=== PATIENT | female | born 1975 | race Caucasian/White ===

== ENCOUNTER → 2020-08-14 | Outpatient (CLI) | payer OTHER ==
--- NOTE | 2020-08-16 03:01 | ECWPNPC ---
PATIENT NAME: EVARISTO MOREL : 1975 GENDER: FEMALE VISIT DATE: 08/14/2020 DISCHARGE DATE: 08/14/20 1355 VISIT LOCKED DATE TIME: PHYSICIAN: KARLA BATES RESOURCE: KARLA BATES REASON FOR APPOINTMENT 1. BOTOX FOR MIGRAINES HISTORY OF PRESENT ILLNESS GENERAL: HPI 45-YEAR-OLD FEMALE IN FOR INITIAL PAIN CONSULT REGARDING BOTOX INJECTIONS FOR HER MIGRAINES. PATIENT ADMITS TO A HISTORY OF MIGRAINES FOR SEVERAL YEARS FURTHER STATING THAT SHE GETS GREATER THAN 15 MIGRAINES A MONTH. PATIENT IS CURRENTLY ON PROPRANOLOL A PROPHYLACTIC MIGRAINE MEDICINE SHE IS ALSO TAKING RIZATRIPTAN AND IMITREX NEEDED. . -. FALL RISK SCREENING: SCREENING : NO FALLS REPORTED IN THE LAST YEAR. PAIN SCREENING: PATIENT HAS A COMPLAINT OF ACUTE OR CHRONIC PAIN :YES LOCATION OF PAIN:HEAD, NECK INTENSITY OF PAIN (SCALE OF 1 TO 10):3 WHAT DOES YOUR PAIN FEEL LIKE:THROBBING DURATION:STEADY PAIN IS DECREASED BY:USE OF PAIN MEDICATIONS PLAN/GOALS/TREATMENT/INTERVENTION/FOLLOW UP:SEE PLAN NURSING NOTE: -. PAIN CENTER INTAKE QUESTIONS: DO YOU HAVE A HISTORY OF MRSA? :NO DO YOU TAKE A BLOOD THINNERS? :NO DO YOU HAVE ANY BLEEDING DISORDERS? :NO ANY NEW NUMBNESS OR WEAKNESS IN YOUR LEGS OR ARMS? :NO ANY PACEMAKER,DEFIBRILLATOR, OR DORSAL COLUMN STIMULATOR? :NO DO YOU HAVE ANY RASHES OR OPEN SORES? :NO ARE YOU ALLERGIC TO IV DYE? :NO ARE YOU DIABETIC? :NO ANY NEW PROBLEMS WITH YOUR MEDICATIONS? :NO HAVE YOU RECEIVED A VACCINE IN THE PAST 30 DAYS? :NO DO YOU PLAN TO RECEIVE A VACCINE IN THE NEXT 21 DAYS? :NO DO YOU NEED ANY PRESCRIPTION? :NO DO YOU TAKE ANY IMMUNOSUPPRESSIVE MEDICATIONS? :NO DO YOU HAVE ANY KIDNEY OR LIVER DISEASE? :NO IS THERE A CHANCE YOU COULD BE ? :NO ARE YOU BREAST FEEDING? :NO CURRENT MEDICATIONS TAKING VITAMIN D (CHOLECALCIFEROL) 25 MCG (1000 UT) CAPSULE 1 CAPSULE ORALLY ONCE A DAY TAKING PROPRANOLOL HCL 40 MG TABLET 1 TABLET ORALLY TWICE A DAY TAKING RIZATRIPTAN BENZOATE 10 MG TABLET 1 TABLET ORALLY ONCE A DAY TAKING MEDROL (ALLY) TAKING IMITREX 6 MG/0.5ML SOLUTION INJECTION SUBCUTANEOUS TWICE A DAY NEEDED TAKING MAGNESIUM 30 MG TABLET 1 TABLET WITH A MEAL ORALLY ONCE A DAY NOT-TAKING AJOVY 225 MG/1.5ML SOLUTION PREFILLED SYRINGE 1.5 ML SUBCUTANEOUS , NOTES: MONTHLY PAST MEDICAL HISTORY MIGRAINE HEADACHES OBESITY INTERSTITIAL CYSTITIS HYPERLIPIDEMIA ALLERGIES PENICILLIN V POTASSIUM: RASH - ALLERGY MORPHINE SULFATE: CHEST PRESSURE/SOB - ALLERGY AJOVY: HEAT SPOT AND SKIN CRAWLING BENADRYL: ITCHING - SIDE EFFECTS SURGICAL HISTORY ESSURE IMPLANT (ALTERNATIVE TO TUBAL LIGATION) 08/2011 TVT 09/2011 PARTIAL HYSTERECTOMY 2014 RIGHT BREAST BIOPSY 2014 BLADDER SUSPENSION 2012 BOTOX INJECTION INTO BLADDER 04/2018 CHOLECYSTECTOMY (DR. KEBEDE) 06/15/2018 SCAR TISSURE REMOVED FROM LEFT OVARY 04/2019 FAMILY HISTORY FATHER: ALIVE, DIAGNOSED WITH HYPERTENSION, DIABETES MOTHER: ALIVE, HYPERTENSION PATERNAL GRAND MOTHER: 2 BROTHER(S) , 2 SISTER(S) - HEALTHY. 1 SON(S) , 2 DAUGHTER(S) - HEALTHY. PATERNAL GRANDFATHER: SEIZURES. SOCIAL HISTORY GENERAL: TOBACCO USE ARE YOU A:NONSMOKER ALCOHOL USE: YES, RARELY. RECREATIONAL DRUG USE DRUG USE?NO BUDDHISM [id number] SPIRITISM NO LUTHERAN BELIEFS THAT WOULD IMPACT HEALTH CARE. LEARNING BARRIERS / SPECIAL NEEDS BARRIERS TO LEARNING?NO HEARING IMPAIRED?NO VISION IMPAIRED?YES :CORRECTIVE LENSES COGNITIVELY IMPAIRED?NO READINESS TO LEARN?YES LEARNING PREFERENCES?NO LEARNING CAPABILITIES PRESENT?YES EMOTIONAL BARRIERS?NO SPECIAL DEVICES?NO COLOR RECEIVER NEEDED?NO HOSPITALIZATION/MAJOR DIAGNOSTIC PROCEDURE CHILDBIRTH SURGICAL RELATED REVIEW OF SYSTEMS CONSTITUTIONAL: ANY RECENT FEVER NO . CHILLS NO . WEIGHT CHANGE OF UNKNOWN REASONS NO . MUSCULOSKELETAL: ANY UNUSUAL JOINT PAIN OR SWELLING NOT MENTIONED NO . SYSTEMIC LUPUS NO . ANY NEUROMUSCULAR DISORDER NOT MENTIONED NO . LYME DISEASE NO . GASTROENTEROLOGY: ANY NEW CHANGE IN BOWEL CONTROL? NO . HISTORY OF LIVER DISORDER NOT MENTIONED NO . NEW UNEXPLAINABLE CHANGES IN BOWEL CONTROL NO . HISTORY OF UNUSUAL ABDOMINAL PAIN OR CRAMPING NOT MENTIONED NO . NO CONSTIPATION, NO . GENITOURINARY: ANY NEW CHANGE IN BLADDER CONTROL? NO, NO . ANY RENAL/KIDNEY CONDITON NOT MENTIONED NO . NEUROLOGY: HISTORY OF TBI NOT MENTIONED NO . OTHER NEW NUMBNESS OR PAIN PATTERNS NOT MENTIONED NO . NEW ONSET DIZZINESS OR NEUROLOGICAL CHANGES NOT MENTIONED NO, NO . NEW NUMBNESS OR PAIN PATTERNS NOT MENTIONED AND PERTINENT TO TODAY'S VISIT NO . HISTORY OF SEVERE HEADACHES NOT MENTIONED NO . HISTORY OF STROKE OR NEUROLOGICAL DISORDER NOT MENTIONED NO . CARDIOLOGY: NEW CHEST PRESSURE NO . HEART SURGERY NO . CONGESTIVE HEART FAILURE/FLUID OVERLOAD NOT MENTIONED NO . PATIENT DENIES NO . HISTORY OF CHEST PAIN,IRREGULAR HEART BEAT NOT MENTIONED NO . RESPIRATORY: SHORTNESS OF BREATH ON EXERTION, WHEEZES, UNUSUAL COUGH NOT MENTIONED NO . UNEXPLAINABLE COUGH NO . NEW SHORTNESS OF BREATH NO . ENDOCRINOLOGY: ADRENAL GLAND OR THYROID DISORDERS NOT MENTIONED NO . UNUSUAL URINATION, DIZZINESS OR LETHARGY NOT MENTIONED NO . VITAL SIGNS WT 207.0 LBS, HT 59 IN, BMI 41.80 INDEX, BP 137/63 MM HG, HR 66 /MIN, RR 18 /MIN, TEMP 98.7 F, OXYGEN SAT % 100%, NA INITIALS AW 1316. EXAMINATION GENERAL EXAMINATION: GENERALNO ACUTE DISTRESS, WELL NOURISHED AND HYDRATED. PSYCHAPPROPRIATE MOOD AND AFFECT . LUNGS:CLEAR TO AUSCULTATION BILATERALLY, NO WHEEZES, RHONCHI, RALES. HEART:NO MURMURS, REGULAR RATE AND RHYTHM. ASSESSMENTS MIGRAINE WITHOUT AURA AND WITHOUT STATUS MIGRAINOSUS, NOT INTRACTABLE - G43.009 (PRIMARY) TREATMENT MIGRAINE WITHOUT AURA AND WITHOUT STATUS MIGRAINOSUS, NOT INTRACTABLE NOTES: 45-YEAR-OLD FEMALE IN FOR INITIAL PAIN CONSULT. GIVEN PRESENTING SYMPTOMS RECOMMEND BOTOX INJECTIONS TO THE HEAD NECK AND SHOULDERS WITH POST PROCEDURAL FOLLOW-UP. PATIENT HAS EXPRESSED UNDERSTANDING OF AND WAS IN AGREEMENT WITH TREATMENT PLAN. GIVEN TIME TO ASK QUESTIONS AND EXPRESS CONCERNS. OTHERS NOTES: 08/13/20 1820 PAT DELMA SEVILLA PRE ASSEMBLY WIRER . PROCEDURE CODES FA211 ESTABILISHED PATIENT [facility] CHARGE DISPOSITION & COMMUNICATION FOLLOW UP POSTPROCEDURE (REASON: BOTOX INJECTIONS TO THE HEAD NECK AND SHOULDERS) ELECTRONICALLY SIGNED BY THI ADAMS ON 08/15/2020 AT 08:38 AM EDT DISCLAIMER : THIS IS A VISIT SUMMARY EXTRACTED FROM THE [employer] CHART. IT IS NOT A COPY OF THE [employer] PROGRESS NOTE. FLORES
== END ==
LOC: M PAIN 13:00
PROVIDERS: ATTEND Family Medicine
DX: G43.009 Migraine without aura, not intractable, without status migrainosus (principal); Z88.0 Allergy status to penicillin; Z88.5 Allergy status to narcotic agent; Z88.8 Allergy status to other drugs, medicaments and biological substances; E66.01 Morbid (severe) obesity due to excess calories; Z68.41 Body mass index [BMI] 40.0-44.9, adult; Z79.899 Other long term (current) drug therapy

== ENCOUNTER → 2020-09-19 | Outpatient (CLI) | payer OTHER ==
[~2020-09-19] MED LIST: BOTOX THERAPEUTIC 100 UNIT VIAL (J0585 PER 1 UNIT) IM ONE; NORCO, ANEXSIA 5/325MG TABLET (HYDROcodone/ACETAMINOPHEN) As Ordered ONE; ONDANSETRON 4 MG ORAL DISINTEGRATING TAB As Ordered ONE; diazePAM 5MG TABLET As Ordered ONE; diphenhydrAMINE 25MG CAP As Ordered ONE
--- NOTE | 2020-09-22 04:11 | ECWPNPC ---
PATIENT NAME: EVARISTO MOREL : 1975 GENDER: FEMALE VISIT DATE: 09/19/2020 DISCHARGE DATE: 09/19/20 1252 VISIT LOCKED DATE TIME: PHYSICIAN: BAN TIM MD RESOURCE: BAN TIM MD REASON FOR APPOINTMENT 1. BOTOX INJECTIONS TO THE HEAD NECK AND SHOULDERS HISTORY OF PRESENT ILLNESS GENERAL: -. PAIN SCREENING: PATIENT HAS A COMPLAINT OF ACUTE OR CHRONIC PAIN :YES LOCATION OF PAIN:FACE, HEAD INTENSITY OF PAIN (SCALE OF 1 TO 10):3 AVERAGE 7-8 WHAT DOES YOUR PAIN FEEL LIKE:SHARP, STABBING, THROBBING DURATION:CONSTANT, STEADY, AWAKENS FROM SLEEP PAIN IS INCREASED BY:ACTIVITIES, OTHERS BRIGHT LIGHTS, LOUD NOISES, VARIOUS TRIGGERS PAIN IS DECREASED BY:USE OF PAIN MEDICATIONS, OTHERS DECREASING STIMULATION PLAN/GOALS/TREATMENT/INTERVENTION/FOLLOW UP:SEE PLAN FALL RISK SCREENING: SCREENING : NO FALLS REPORTED IN THE LAST YEAR. NURSING NOTE: 09/17/[address] TIM, IF PATIENT IS ASYMPTOMATIC FROM UTI, PATIENT MAY HAVE BOTOX IF NOT PROCEDURE WILL HAVE TO BE PUSHED. Jeanie SEVILLA RESEARCH AND DEVELOPMENT DIRECTOR. 09/17/20 1215 PATIENT REPORTS SYMPTOMS ARE RESOLVING. PAIN CENTER INTAKE QUESTIONS: DO YOU HAVE A HISTORY OF MRSA? :NO DO YOU TAKE A BLOOD THINNERS? :NO DO YOU HAVE ANY BLEEDING DISORDERS? :NO ANY NEW NUMBNESS OR WEAKNESS IN YOUR LEGS OR ARMS? :YES SAW CHIROPRACTOR LAST THURSDAY, EXPERIENCING INTERMITTENT NUMBNESS/TINGLING IN LEFT/RIGHT HAND, IMPROVED SINCE SEEING PROVIDER. ANY PACEMAKER,DEFIBRILLATOR, OR DORSAL COLUMN STIMULATOR? :NO DO YOU HAVE ANY RASHES OR OPEN SORES? :NO ARE YOU ALLERGIC TO IV DYE? :NO ARE YOU DIABETIC? :NO ANY NEW PROBLEMS WITH YOUR MEDICATIONS? :NO HAVE YOU RECEIVED A VACCINE IN THE PAST 30 DAYS? :NO DO YOU PLAN TO RECEIVE A VACCINE IN THE NEXT 21 DAYS? :NO DO YOU TAKE ANY IMMUNOSUPPRESSIVE MEDICATIONS? :NO ANY HISTORY OF SEIZURES? :NO ANY HISTORY OF CARDIAC ISSUES OR EVENTS? :NO DO YOU HAVE ANY KIDNEY OR LIVER DISEASE? :NO DO YOU HAVE SLEEP APNEA? :NO ANY RECENT HEAD INJURY? :NO DO YOU HAVE ANY NEW INFECTIONS? :YES RECENT UTI, SYMPYOMS RESOLVING, PER DR. M, OKAY TO PROCEED, ABX LAST DOSE 09/19/20. IS THERE A CHANCE YOU COULD BE ? :NO ARE YOU BREAST FEEDING? :NO WHEN DID YOU LAST EAT? : 09/18 1929 WHEN DID YOU LAST DRINK? : 09/20 839 WHAT DID YOU LAST DRINK? : WATER NAME OF PERSON DRIVING YOU HOME? : HEIDI () DO YOU HAVE ANY OTHER QUESTIONS OR CONCERNS? : NO CURRENT MEDICATIONS TAKING MAGNESIUM 30 MG TABLET 1 TABLET WITH A MEAL ORALLY ONCE A DAY TAKING VITAMIN D (CHOLECALCIFEROL) 25 MCG (1000 UT) CAPSULE 1 CAPSULE ORALLY ONCE A DAY TAKING PROPRANOLOL HCL 40 MG TABLET 1 TABLET ORALLY TWICE A DAY, NOTES: 09/19 714 TAKING RIZATRIPTAN BENZOATE 10 MG TABLET 1 TABLET ORALLY ONCE A DAY, NOTES: 09/11 TAKING IMITREX 6 MG/0.5ML SOLUTION INJECTION SUBCUTANEOUS TWICE A DAY NEEDED TAKING BOTOX 100 UNIT SOLUTION RECONSTITUTED FOR IM INJECTION AT THE HEAD, NECK AND SHOULDER MUSCLES ICD G43.709 BOTOX ON 09/19/20 AT 10:40 TAKING MAGNESIUM 400 MG CAPSULE DIRECTED ORALLY TAKING CIPRO 500 MG TABLET 1 TABLET ORALLY EVERY 12 HRS, NOTES: COMPLETED 09/19 714 NOT-TAKING MEDROL (ALLY) NOT-TAKING AJOVY 225 MG/1.5ML SOLUTION PREFILLED SYRINGE 1.5 ML SUBCUTANEOUS , NOTES: MONTHLY MEDICATION LIST REVIEWED AND RECONCILED WITH THE PATIENT PAST MEDICAL HISTORY MIGRAINE HEADACHES OBESITY INTERSTITIAL CYSTITIS HYPERLIPIDEMIA ALLERGIES PENICILLIN V POTASSIUM: RASH - ALLERGY MORPHINE SULFATE: CHEST PRESSURE/SOB - ALLERGY AJOVY: HEAT SPOT AND SKIN CRAWLING - ALLERGY BENADRYL: ITCHING - SIDE EFFECTS SOCIAL HISTORY GENERAL: TOBACCO USE ARE YOU A:NONSMOKER LATEX QUESTIONNAIRE LATEX ALLERGY : HAVE YOU EVER DEVELOPED ANY TYPE OF REACTION AFTER HANDLING LATEX PRODUCTS SUCH RUBBER GLOVES, CONDOMS, DIAPHRAGMS, BALLOONS, SOCKS, OR UNDERWEAR?NO LATEX ALLERGY : HAVE YOU EVER DEVELOPED ANY TYPE OF REACTION DURING OR AFTER DENTAL APPOINTMENT, VAGINAL/RECTAL EXAMINATION, SURGICAL PROCEDURE, OR ANY OTHER EXPOSURE?NO LATEX RISK : HAVE YOU EVER HAD ANY DIFFICULTY BREATHING OR HIVES AFTER EATING OR HANDLING ANY FRUITS, OR VEGETABLES; SUCH KIWI, BANANAS, STONE FRUITS, OR CHESTNUTSYES - PLEASE INDICATE : BANANAS TASTE BUDS SWELL LATEX RISK : DO YOU HAVE A PREVIOUS PERSONAL HISTORY OF MORE THAN NINE SURGERIES, SPINA BIFIDA, OR REPEATED CATHERIZATIONS? YES - PLEASE INDICATE : > 9 SURGERIES LATEX RISK : ARE YOU FREQUENTLY EXPOSED TO LATEX PRODUCTS IN YOUR OCCUPATION?NO DATE ASKED : 09/18/2020 ALCOHOL USE: YES, RARELY. RECREATIONAL DRUG USE DRUG USE?NO EPISCOPAL [id number] CHRISTIANITY NO ANABAPTIST BELIEFS THAT WOULD IMPACT HEALTH CARE. 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 MARITAL STATUS: . - HAS THE PATIENT BEEN EDUCATED REGARDING HIS/HER PLAN OF CARE?YES HAS THE PATIENT BEEN EDUCATED REGARDING PAIN, THE RISK FOR PAIN, THE IMPORTANCE OF EFFECTIVE PAIN MANAGEMENT, AND THE PAIN ASSESSMENT PROCESS?YES ADVANCE DIRECTIVE ADVANCE DIRECTIVE DISCUSSED WITH PATIENT:YES PT DOES NOT HAVE ANY ADVANCED DIRECTIVES AND DECLINES INFORMATION ON HCP AT THIS TIME VITAL SIGNS WT 206.0 LBS, HT 59 IN, BMI 41.60 INDEX, BP 116/74 MM HG, HR 55 /MIN, RR 18 /MIN, TEMP 97.6 F, OXYGEN SAT % 97%, SAFE IN ENV? (Y/N) Y, NA INITIALS AW 1113, REVIEWED BY: Naa KELSEY RN. EXAMINATION GENERAL: THE PATIENT IS ALERT, ORIENTED TIMES THREE AND COOPERATIVE. LUNGS ARE CLEAR TO AUSCULTATION. HEART SHOWS REGULAR RHYTHM, NO MURMURS AND NO GALLOPS. ASSESSMENTS CHRONIC MIGRAINE - G43.709 (PRIMARY) TREATMENT CHRONIC MIGRAINE MEDICATION: PAIN VALIUM TAB 10MG ORALLY (DIAZEPAM)SISI NEVAREZ 09/19/2020 11:29:30 AM > VERIFIED CURLY KELSEY 09/19/2020 11:38:54 AM > ADMINISTERED AT 1134 COMPLETION OF PROCEDURAL VISIT WHEN MEETS CRITERIADECURLY ELLIOTT 09/19/2020 12:56:46 PM > CRITERIA MET 1252 MED: PAIN ZOFRAN ODT TAB 4MG DISSOLVE ON TONGUE ONDANSETRONMAURESISI Lindquist 09/19/2020 11:29:46 AM > VERIFIED CURLY KELSEY 09/19/2020 11:38:26 AM > ADMINIATERED MED: PAIN BENADRYL TAB 25MG ORALLY DIPHENHYDRAMINEMAURESISI Lindquist 09/19/2020 11:30:05 AM > VERIFIED ELIGIO PIERCE 09/19/2020 11:34:18 AM > ORDER CANCELED. PATIENT ALLERGIC MED: PAIN NORCO TABLET 5MG/325MG ORALLY HYDROCODONE/ACETAMINOPHENMAURERGUADALUPESISI 09/19/2020 11:30:18 AM > VERIFIED CURLY KELSEY 09/19/2020 11:39:16 AM > ADMINISTERED AT 1134 PROCEDURES PAIN NURSING RECORD PROCEDURE IN ROOM 1055, PHYSICIAN IN ROOM 1212, START 1217, FINISH 1230, PHYSICIAN OUT OF ROOM 1230, OUT OF ROOM 1252, ECG N/A, PATIENT SHIELDED N/A, SAFETY STRAP N/A, PREP ALCOHOL DR. TIM, DRESSING N/A LOC: LOWCURLY 09/19/2020 11:22:58 AM > 1. ALERT, ORIENTED RESP: LOW,CURLY 09/19/2020 11:23:01 AM > 1. REGULAR, NO DYSPNEA COLOR: LOWCURLY 09/19/2020 11:23:04 AM > 1. PINK SKIN: LOW,CURLY 09/19/2020 11:23:07 AM > 1. WARM, DRY POSITION: LOWCURLY 09/19/2020 11:23:10 AM > 5. SITTING COMPLETION OF PROCEDURE APPOINTMENT: POST PAIN 4 :"STINGING" LEFT SIDE OF HEAD, DRESSING SITE NO DRESSING, IV N/A, GAIT STEADY, TEACHING COMPLETED, PATIENT ACKNOWLEDGES UNDERSTANDING YES, PROCEDURE APPOINTMENT COMPLETED AT 1252 BY: Naa KELSEY RN PN BOTOX INJECTIONS FIRST INJECTION PRE PROCEDURE DIAGNOSIS CHRONIC MIGRAINE HEADACHES POST PROCEDURE DIAGNOSIS CHRONIC MIGRAINE HEADACHES PROCEDURE BOTOX INJECTION AT THE HEAD, NECK AND SHOULDERS SURGEON DR. BAN TIM FUR DRY CLEANER NONE ANESTHESIA NONE PRE PROCEDURE NOTE THE PATIENT HAS HISTORY OF CHRONIC MIGRAINE HEADACHES. I EVALUATED THE PATIENT AND REVIEWED THE CHART. I WENT OVER THE RISKS, ALTERNATIVES, AND BENEFITS ASSOCIATED WITH THIS PROCEDURE. THE PATIENT WOULD LIKE TO PROCEED AND GAVE CONSENT TO PERFORM THE PROCEDURE. THE PATIENT DENIES UNEXPLAINABLE WEIGHT LOSS, FEVER, CHILLS, OR NEW CHANGES IN URINARY OR BOWEL CONTROL. THE PATIENT IS HAVING HEADACHES EVERY DAY OF THE MONTH. THE PATIENT HAS USED THE MEDICATIONS LISTED IN THE CHART TO TREAT THE HEADACHES FOR MANY MONTHS BUT THE HEADACHES PERSIST DESCRIBED ABOVE. THE PATIENT IS COVID-19 NEGATIVE DESCRIPTION OF PROCEDURE THE PATIENT WAS BROUGHT TO THE PROCEDURE ROOM AND PLACED IN THE SUPINE POSITION. A TIMEOUT WAS PERFORMED WHERE THE CONSENTED SITE WAS VERIFIED WITH EVERYONE IN THE ROOM. FOR THE PROCEDURE, I USED A SOLUTION OF 5 UNITS OF BOTOX PER EACH 0.1 ML OF THE SOLUTION. I USED A 30-GAUGE NEEDLE TO INJECT THE SOLUTION AT THE SELECTED LOCATIONS. I INJECTED FIRST THE RIGHT AND LEFT AFRICAN STUDIES PROFESSOR MUSCLES. THE LANDMARK FOR BOTH INJECTIONS WAS APPROXIMATELY 1 CM ABOVE THE SUPERIOR MEDIAL EDGE OF THE EYEBROW. AFTER THESE TWO INJECTIONS, I INJECTED THE PROCERUS MUSCLE AT THE MIDLINE POINT BETWEEN THESE FIRST TWO INJECTIONS. I INJECTED AT THESE 3 LOCATIONS, 2.5 UNITS OF BOTOX. THEN I PROCEEDED TO INJECT THE RIGHT AND LEFT FRONTALIS MUSCLE. TWO INJECTIONS WERE DONE IN EACH SIDE. THE FIRST INJECTION WAS DONE APPROXIMATELY 2 CM ABOVE THE FIRST INJECTION OF THE AFRICAN STUDIES PROFESSOR. THE SECOND INJECTION WAS DONE APPROXIMATELY 1.5 CM LATERAL TO THIS FIST INJECTION OF THE FRONTALIS OF EACH SIDE. AFTER THE INJECTIONS OVER THE FOREHEAD WERE DONE, THE PATIENT'S HEAD WAS TURNED TO THE LEFT SIDE AND WE STARTED TO WORK WITH THE RIGHT TEMPORALIS MUSCLE. FIRST INJECTION WAS DONE IN A VERTICAL LINE OF THE TRAGUS APPROXIMATELY 3 CM ABOVE THE TRAGUS. THE SECOND INJECTION WAS DONE APPROXIMATELY 2 CM ABOVE THE FIRST INJECTION. THE THIRD INJECTION WAS DONE APPROXIMATELY 1 CM FORWARD FROM THIS VERTICAL LINE CREATED AT THE LEVEL OF THE TRAGUS, SKILLED NURSING BETWEEN THESE TWO INJECTIONS. THE FOURTH INJECTION WAS DONE APPROXIMATELY 1.5 CM BACK FROM THE SECOND INJECTION TO THE TEMPORALIS IN LINE TO THE MIDPORTION OF THE EAR. THEN, WE PROCEEDED TO INJECT THE LEFT TEMPORALIS MUSCLE. WE CLEANED THE AREA WITH ALCOHOL AND PROCEEDED TO PERFORM THE SAME FOR INJECTIONS DESCRIBED ABOVE BUT IN THE LEFT TEMPORALIS MUSCLE USING THE SAME LANDMARKS. AFTER THESE INJECTIONS WERE DONE, THE PATIENT WAS SEATED. FIRST, WE STARTED TO INJECT THE LEFT AND RIGHT OCCIPITALIS MUSCLE. I INJECTED AT THE FOLLOWING PLACES IN THE RIGHT AND LEFT MUSCLE. THE FIRST INJECTION WAS DONE AT THE MIDPOINT POSITION BETWEEN THE MASTOID PROCESS AND THE INION OF THE OCCIPITAL PROTUBERANCE. THE SECOND INJECTION WAS DONE APPROXIMATELY 1.5 CM SUPERIOR AND LATERAL OF THIS POINT. THE THIRD INJECTION WAS DONE APPROXIMATELY 1.5 CM SUPERIOR AND MEDIAL TO THIS FIRST INJECTION. NEXT, I PROCEEDED TO INJECT THE RIGHT AND LEFT PARASPINAL MUSCLES. LANDMARK OF THE INJECTION WERE APPROXIMATELY: FIRST INJECTION 3 CM BELOW THE INION AND 1 CM LATERAL TO THE MIDLINE AND SECOND INJECTION AT EACH SIDE WAS DONE APPROXIMATELY 1.5 CM SUPERIOR AND LATERAL OF THE FIRST INJECTION. THE LAST GROUP OF INJECTIONS WAS DONE OVER THE RIGHT AND LEFT TRAPEZIUS MUSCLE OVER THE SHOULDERS AREA. THE FIRST INJECTION WAS DONE AT THE MIDPOINT BETWEEN THE INFLECTION POINT BETWEEN THE NECK AND SHOULDER AND THE ACROMION. THE SECOND AND THIRD INJECTIONS WERE DONE APPROXIMATELY 2.5 CM LATERAL AND MEDIAL FROM THIS FIRST INJECTION. SAME TARGETS WERE USED IN THE RIGHT AND LEFT SIDE. IN TOTAL, I INJECTED 147.5 UNITS OF BOTOX. THE MEDICATIONS WERE VERIFIED WITH THE NURSE. PROCEDURE WAS DONE WITHOUT EVIDENCE OF PARESTHESIA OR ANY COMPLICATIONS. THE PATIENT TOLERATED THE PROCEDURE VERY WELL. ESTIMATED BLOOD LOSS WAS LESS THAN 5 ML. THE PATIENT WAS SENT TO THE RECOVERY ROOM FOR OBSERVATIONS. INJECTIONS WERE DONE AFTER CLEANING WITH ALCOHOL, USING ASEPTIC TECHNIQUES POST PROCEDURE NOTE THE PROCEDURE DONE WAS DISCUSSED WITH THE PATIENT. THE PATIENT WILL BE SEEN IN A FOLLOW UP IN THE NEXT FEW WEEKS. I AM LOOKING FOR LONG LASTING PAIN RELIEF FOR THE PATIENT WITH THIS INTERVENTION. INSTRUCTIONS WERE GIVEN, QUESTIONS WERE ANSWERED, AND THE PATIENT EXPRESSED UNDERSTANDING AND AGREES WITH THE PLAN. I, JOHN PIERCE, DOCUMENTED THE ABOVE INFORMATION ACTING A SCRIBE FOR DR. TIM. I HAVE REVIEWED THE ABOVE DOCUMENT, WRITTEN BY ELIGIO PIERCE, SORTING GRAPPLE OPERATOR, AND I VERIFY THAT IT IS ACCURATE PROCEDURE CODES 09179 CHEMODENERV MUSC MIGRAINE DISPOSITION & COMMUNICATION FOLLOW UP FOLLOW UP WITH COIL WINDER (REASON: POST BOTOX INJECTIONS TO HEAD, NECK AND SHOULDER AREAS) ELECTRONICALLY SIGNED BY BAN TIM MD, MD ON 09/21/2020 AT 09:56 AM EDT DISCLAIMER : THIS IS A VISIT SUMMARY EXTRACTED FROM THE [employer] CHART. IT IS NOT A COPY OF THE [employer] PROGRESS NOTE. CLINTD
== END ==
LOC: M PAIN 10:40
PROVIDERS: ATTEND Anesthesiology
DX: G43.709 Chronic migraine without aura, not intractable, without status migrainosus (principal); Z88.0 Allergy status to penicillin; Z88.5 Allergy status to narcotic agent; Z88.8 Allergy status to other drugs, medicaments and biological substances; E66.01 Morbid (severe) obesity due to excess calories; Z68.41 Body mass index [BMI] 40.0-44.9, adult; Z79.899 Other long term (current) drug therapy
CPT/HCPCS: 64615; J0585; Q0162

== ENCOUNTER → 2020-10-19 | Outpatient (CLI) | payer OTHER | LOC: M PAIN 09:30 | PROVIDERS: ATTEND Anesthesiology | DX: G89.29 Other chronic pain (principal); G43.709 Chronic migraine without aura, not intractable, without status migrainosus; Z88.0 Allergy status to penicillin; Z88.5 Allergy status to narcotic agent; Z88.8 Allergy status to other drugs, medicaments and biological substances; E66.01 Morbid (severe) obesity due to excess calories; Z68.41 Body mass index [BMI] 40.0-44.9, adult; Z79.899 Other long term (current) drug therapy ==

== ENCOUNTER → 2021-02-05 | Outpatient (CLI) | payer OTHER ==
[~2021-02-05] MED LIST changes: -diphenhydrAMINE 25MG CAP As Ordered ONE
== END ==
LOC: M PAIN 10:40
PROVIDERS: ATTEND Anesthesiology
DX: G43.709 Chronic migraine without aura, not intractable, without status migrainosus (principal); Z88.0 Allergy status to penicillin; Z88.5 Allergy status to narcotic agent; Z88.8 Allergy status to other drugs, medicaments and biological substances; E66.01 Morbid (severe) obesity due to excess calories; Z68.41 Body mass index [BMI] 40.0-44.9, adult; Z79.899 Other long term (current) drug therapy
CPT/HCPCS: 64615; J0585; Q0162

== ENCOUNTER → 2021-02-15 | Outpatient (CLI) | payer OTHER | LOC: M PAIN 11:45 | PROVIDERS: ATTEND Nurse Practitioner Family | DX: G43.709 Chronic migraine without aura, not intractable, without status migrainosus (principal); Z88.0 Allergy status to penicillin; Z88.5 Allergy status to narcotic agent; Z88.8 Allergy status to other drugs, medicaments and biological substances; E66.01 Morbid (severe) obesity due to excess calories; Z68.41 Body mass index [BMI] 40.0-44.9, adult; Z79.899 Other long term (current) drug therapy ==

== ENCOUNTER → 2021-12-04 | Outpatient (CLI) | payer OTHER | LOC: M PAIN 10:15 | PROVIDERS: ATTEND Anesthesiology | DX: G43.709 Chronic migraine without aura, not intractable, without status migrainosus (principal); G89.29 Other chronic pain; Z88.0 Allergy status to penicillin; Z88.5 Allergy status to narcotic agent; Z88.8 Allergy status to other drugs, medicaments and biological substances; E66.01 Morbid (severe) obesity due to excess calories; Z68.41 Body mass index [BMI] 40.0-44.9, adult; Z79.899 Other long term (current) drug therapy ==

== ENCOUNTER → 2022-01-23 | Outpatient (CLI) | payer OTHER ==
[~2022-01-23] MED LIST changes: -ONDANSETRON 4 MG ORAL DISINTEGRATING TAB As Ordered ONE; +ONDANSETRON 4MG ORAL DISINTEGRATING TAB As Ordered ONE
== END ==
LOC: M PAIN 13:30
PROVIDERS: ATTEND Anesthesiology
DX: G43.709 Chronic migraine without aura, not intractable, without status migrainosus (principal); Z88.0 Allergy status to penicillin; Z88.5 Allergy status to narcotic agent; Z88.8 Allergy status to other drugs, medicaments and biological substances; E66.01 Morbid (severe) obesity due to excess calories; Z68.41 Body mass index [BMI] 40.0-44.9, adult; Z79.899 Other long term (current) drug therapy
CPT/HCPCS: 64615; J0585

== ENCOUNTER → 2022-03-13 | Outpatient (CLI) | payer OTHER | LOC: M PAIN 10:15 | PROVIDERS: ATTEND Nurse Practitioner Family | DX: G43.709 Chronic migraine without aura, not intractable, without status migrainosus (principal); Z88.0 Allergy status to penicillin; Z88.5 Allergy status to narcotic agent; Z88.8 Allergy status to other drugs, medicaments and biological substances; E66.01 Morbid (severe) obesity due to excess calories; Z68.41 Body mass index [BMI] 40.0-44.9, adult; Z79.899 Other long term (current) drug therapy ==

== ENCOUNTER → 2022-05-05 | Outpatient (CLI) | payer OTHER ==
[~2022-05-05] MED LIST changes: -BOTOX THERAPEUTIC 100 UNIT VIAL (J0585 PER 1 UNIT) IM ONE; +BOTOX THERAPEUTIC 100 UNIT VIAL IM ONE
== END ==
LOC: M PAIN 09:00
PROVIDERS: ATTEND Anesthesiology
DX: G43.709 Chronic migraine without aura, not intractable, without status migrainosus (principal); Z88.0 Allergy status to penicillin; Z88.5 Allergy status to narcotic agent; Z88.8 Allergy status to other drugs, medicaments and biological substances; E66.01 Morbid (severe) obesity due to excess calories; Z68.41 Body mass index [BMI] 40.0-44.9, adult; Z79.899 Other long term (current) drug therapy
CPT/HCPCS: 64615; J0585

== ENCOUNTER → 2022-06-11 | Outpatient (CLI) | payer OTHER | LOC: M PAIN 10:45 | PROVIDERS: ATTEND Anesthesiology | DX: G89.29 Other chronic pain (principal); G43.709 Chronic migraine without aura, not intractable, without status migrainosus; Z88.0 Allergy status to penicillin; Z88.5 Allergy status to narcotic agent; Z88.8 Allergy status to other drugs, medicaments and biological substances; Z79.899 Other long term (current) drug therapy ==

== ENCOUNTER → 2022-11-21 | Outpatient (CLI) | payer OTHER | LOC: M PAIN 08:30 | PROVIDERS: ATTEND Anesthesiology | DX: G43.709 Chronic migraine without aura, not intractable, without status migrainosus (principal); Z88.0 Allergy status to penicillin; Z88.5 Allergy status to narcotic agent; Z88.8 Allergy status to other drugs, medicaments and biological substances; E66.01 Morbid (severe) obesity due to excess calories; Z68.41 Body mass index [BMI] 40.0-44.9, adult; Z79.899 Other long term (current) drug therapy | CPT/HCPCS: 64615; J0585 ==

== ENCOUNTER → 2023-01-07 | Outpatient (CLI) | payer OTHER | LOC: M PAIN 11:45 | PROVIDERS: ATTEND Anesthesiology | DX: G43.709 Chronic migraine without aura, not intractable, without status migrainosus (principal); Z80.8 Family history of malignant neoplasm of other organs or systems; Z88.0 Allergy status to penicillin; Z88.4 Allergy status to anesthetic agent; Z88.5 Allergy status to narcotic agent; Z88.8 Allergy status to other drugs, medicaments and biological substances; Z79.899 Other long term (current) drug therapy ==

== ENCOUNTER → 2023-02-26 | Outpatient (CLI) | payer OTHER | LOC: M PAIN 10:00 | PROVIDERS: ATTEND Anesthesiology | DX: G43.709 Chronic migraine without aura, not intractable, without status migrainosus (principal); Z88.0 Allergy status to penicillin; Z88.5 Allergy status to narcotic agent; Z88.8 Allergy status to other drugs, medicaments and biological substances; E66.01 Morbid (severe) obesity due to excess calories; Z68.41 Body mass index [BMI] 40.0-44.9, adult; Z79.899 Other long term (current) drug therapy | CPT/HCPCS: 64615; J0585 ==

== ENCOUNTER → 2023-04-09 | Outpatient (CLI) | payer OTHER | LOC: M PAIN 16:15 | PROVIDERS: ATTEND Anesthesiology | DX: G43.709 Chronic migraine without aura, not intractable, without status migrainosus (principal); Z88.0 Allergy status to penicillin; Z88.5 Allergy status to narcotic agent; Z88.8 Allergy status to other drugs, medicaments and biological substances; Z79.899 Other long term (current) drug therapy ==

== ENCOUNTER → 2023-07-09 | Outpatient (CLI) | payer OTHER | LOC: M PAIN 10:00 | PROVIDERS: ATTEND Anesthesiology | DX: G43.709 Chronic migraine without aura, not intractable, without status migrainosus (principal); E66.9 Obesity, unspecified; E78.5 Hyperlipidemia, unspecified; Z68.41 Body mass index [BMI] 40.0-44.9, adult; Z79.899 Other long term (current) drug therapy; Z88.0 Allergy status to penicillin; Z88.5 Allergy status to narcotic agent; Z88.8 Allergy status to other drugs, medicaments and biological substances | CPT/HCPCS: 64615; J0585 ==

== ENCOUNTER → 2023-08-24 | Outpatient (CLI) | payer OTHER | LOC: M PAIN 09:45 | PROVIDERS: ATTEND Nurse Practitioner Family | DX: G43.709 Chronic migraine without aura, not intractable, without status migrainosus (principal); Z79.1 Long term (current) use of non-steroidal anti-inflammatories (NSAID); Z79.85 Long-term (current) use of injectable non-insulin antidiabetic drugs; Z79.83 Long term (current) use of bisphosphonates; Z88.0 Allergy status to penicillin; Z88.5 Allergy status to narcotic agent; Z88.8 Allergy status to other drugs, medicaments and biological substances ==

== ENCOUNTER → 2023-11-19 | Outpatient (CLI) | payer OTHER | LOC: M PAIN 12:30 | PROVIDERS: ATTEND Anesthesiology | DX: G43.709 Chronic migraine without aura, not intractable, without status migrainosus (principal); G43.909 Migraine, unspecified, not intractable, without status migrainosus; E66.9 Obesity, unspecified; E78.5 Hyperlipidemia, unspecified; Z68.41 Body mass index [BMI] 40.0-44.9, adult; Z79.899 Other long term (current) drug therapy; Z88.0 Allergy status to penicillin; Z88.5 Allergy status to narcotic agent; Z88.8 Allergy status to other drugs, medicaments and biological substances | CPT/HCPCS: 64615; J0585 ==

== ENCOUNTER → 2023-11-26 | Outpatient (CLI) | payer OTHER | LOC: M PAIN 13:00 | PROVIDERS: ATTEND Anesthesiology | DX: G43.709 Chronic migraine without aura, not intractable, without status migrainosus (principal); H02.401 Unspecified ptosis of right eyelid; E66.9 Obesity, unspecified; E78.5 Hyperlipidemia, unspecified; Z68.41 Body mass index [BMI] 40.0-44.9, adult; Z79.899 Other long term (current) drug therapy; Z88.0 Allergy status to penicillin; Z88.5 Allergy status to narcotic agent; Z88.8 Allergy status to other drugs, medicaments and biological substances; T48.295A Adverse effect of other drugs acting on muscles, initial encounter ==

== ENCOUNTER → 2023-12-11 | Outpatient (CLI) | payer OTHER | LOC: M PAIN 13:15 | PROVIDERS: ATTEND Anesthesiology | DX: G43.709 Chronic migraine without aura, not intractable, without status migrainosus (principal); H02.401 Unspecified ptosis of right eyelid; E66.9 Obesity, unspecified; E78.5 Hyperlipidemia, unspecified; Z79.899 Other long term (current) drug therapy; Z88.0 Allergy status to penicillin; Z88.5 Allergy status to narcotic agent; Z88.8 Allergy status to other drugs, medicaments and biological substances ==

== ENCOUNTER → 2023-12-24 | Outpatient (CLI) | payer OTHER | LOC: M PAIN 09:45 | PROVIDERS: ATTEND Nurse Practitioner Family | DX: G43.709 Chronic migraine without aura, not intractable, without status migrainosus (principal); E66.9 Obesity, unspecified; E78.5 Hyperlipidemia, unspecified; Z88.0 Allergy status to penicillin; Z88.5 Allergy status to narcotic agent; Z88.8 Allergy status to other drugs, medicaments and biological substances; Z68.41 Body mass index [BMI] 40.0-44.9, adult; Z79.899 Other long term (current) drug therapy ==

== ENCOUNTER → 2024-02-23 | Outpatient (CLI) | payer OTHER | LOC: M PAIN 16:00 | PROVIDERS: ATTEND Anesthesiology | DX: G43.709 Chronic migraine without aura, not intractable, without status migrainosus (principal); E78.5 Hyperlipidemia, unspecified; E66.9 Obesity, unspecified; Z68.41 Body mass index [BMI] 40.0-44.9, adult; Z88.0 Allergy status to penicillin; Z88.5 Allergy status to narcotic agent; Z88.8 Allergy status to other drugs, medicaments and biological substances; Z79.899 Other long term (current) drug therapy | CPT/HCPCS: 64615; J0585 ==

== ENCOUNTER → 2024-03-31 | Outpatient (CLI) | payer OTHER | LOC: M PAIN 15:30 | PROVIDERS: ATTEND Anesthesiology | DX: G43.709 Chronic migraine without aura, not intractable, without status migrainosus (principal); E78.5 Hyperlipidemia, unspecified; Z79.899 Other long term (current) drug therapy; Z88.0 Allergy status to penicillin; Z88.5 Allergy status to narcotic agent; Z88.8 Allergy status to other drugs, medicaments and biological substances ==